=== PATIENT | male | born 1965 | race Caucasian/White ===

== ENCOUNTER → 2018-09-04 | Outpatient (CLI) | payer OTHER ==
--- NOTE | 2018-09-04 16:28 | PCVCIMAG ---
APPROVED REPORT Study performed: 09/04/2018 15:00:55 Exam: Stress Echocardiogram Indication: Atrial Fibrillation Patient Location: Echo lab Stress Nurse: Kamryn Hollis RN Room #: 2 Status: routine Ht: 5 ft 10 in HR: 79 bpm BP: 144/96 mmHg Rhythm: NSR Medical History Medical History: HTN, Hyperlipidemia Cardiac Risk Factors: elevated cor ca+ score, Hyperlipidemia Previous Cardiac Procedures: none Pretest Chest Pain Characteristics: No chest pain Exercise History: Physically active Procedure The patient underwent an Exercise Stress Test using the Ravi Protocol. Blood pressure, heart rate, and EKG were monitored. An Echocardiogram was performed by formula technician in four stages in quad fashion. At peak stress, four selected images were obtained and placed side by side with resting images for comparison. Stress Test Details Stress Test: Exercise stress testing was performed using a Ravi protocol. HR Resting HR: 79 bpmMax Heart Rate (APMHR): 169 bpm Max HR Achieved: 181 bpmTarget HR (85% APMHR): 143 bpm % of APMHR: 107 Recovery HR: 103 bpm HR response to stress: Normal HR response to stress BP Resting BP: 144/96 mmHg Max BP: 184/80 mmHg Recovery BP: 152/78 mmHg BP response to stress: Normal blood pressure response to stress. ECG Resting ECG: Sinus Rhythm Stress ECG: Sinus Rhythm, NSSTT changes ST Change: Non-ischemic Arrhythmia: None Recovery ECG: Sinus Rhythm Recovery ST Change: Non-ischemic Recovery Arrhythmia: None Clinical Reason for Termination: Maximal effort Stress Symptoms: none Exercise duration: 11 min 00 sec Highest Stage Achieved: Stage 4: 4.2 mph at 16% grade. Exercise capacity: 13.7 METs Overall Exercise Capacity for Age: Good Angina Score: None No complications. Stress ECG Conclusion The patient exercised according to the RAVI protocol for 11:00 mins; achieving a work level of 13.7 METS. The resting heart rate of 79 bpm lissette to a maximum heart rate of 181 bpm. This value represent 107% of the maximal, age-predicted heart rate. The resting blood pressure of 144/96 mmHg, lissette to a maximum blood pressure of 184/80 mmHg. The exercise test was stopped due to fatigue. Pre-Stress Echo The resting Echocardiogram showed normal left ventricular contractility with an estimated Ejection Fraction of about 55-60%. Normal wall motion in all segments on baseline images. Post-Stress Echo The stress Echocardiogram showed normal left ventricular contractility with an estimated Ejection Fraction of about 65-70%. Normal augmentation of wall motion in all segments on post stress images. Clinical No clinical or ECG evidence for ischemia. Conclusion Clinical Response: Non-ischemic Exercise Capacity: Above average Stress ECG Response: Non-ischemic Stress Echo Images: Non-ischemic The left ventricle is normal in size and wall thickness in both the rest and stress images. <Conclusion> The left ventricle is normal in size and wall thickness in both the rest and stress images.
== END | disposition home or self-care (01) ==
LOC: PCVCIMAG 14:28
PROVIDERS: ATTEND Internal Medicine Cardiovascular Disease
DX: I48.91 Unspecified atrial fibrillation (principal); I10 Essential (primary) hypertension; R93.1 Abnormal findings on diagnostic imaging of heart and coronary circulation
CPT/HCPCS: 93325; 93351